=== PATIENT | female | born 1955 | race Two or more races ===

== ENCOUNTER 2025-05-25 15:08 | Emergency (ER) | payer BC, MEDICARE ==
[~2025-05-25] VITALS: Ht 167.6 cm; Wt 66.0 kg
[2025-05-25 15:14] VITALS: TEMP 36.8; O2SAT 97
[2025-05-25 16:34] LABS: BASOPHILS % 1.0 % (0.0-2.0); EOSINOPHILS % 2.5 % (0.0-5.0); HEMATOCRIT. 37.7 % (36.0-48.0); HEMOGLOBIN. 12.4 g/dL (12.0-16.0); LYMPHOCYTES % 24.4 % (20.0-50.0); MEAN PLATELET VOLUME 9.1 fl (7.4-10.4); MONOCYTES % 6.3 % (2.0-8.0); NEUTROPHILS % 65.8 % (40.0-76.0); PLATELET 246 x1000/uL (130-400); RED BLOOD CELL COUNT 3.99 mill/uL (4.2-5.4); RED CELL DISTRIBUTION WIDTH 13.9 % (11.6-14.6)
[2025-05-25 16:43] LABS: INR 1.0
[2025-05-25 16:46] LABS: CREATININE 0.7 mg/dL (0.6-1.0); UREA NITROGEN BLOOD 11 mg/dL (9-23)
[2025-05-25 16:47] LABS: TROPONIN I HIGH SENSITIVITY 5 ng/L (3.0-34)
[2025-05-25 16:48] LABS: ASPARTATE AMINOTRANSFERASE 14 IU/L (<34); BILIRUBIN DIRECT < 0.1 mg/dL (<=3.0); BILIRUBIN TOTAL 0.4 mg/dL (0.1-1.0); PROTEIN TOTAL 6.3 g/dL (6.0-8.3)
[2025-05-25] MEDS ORDERED: IBUP-2028 MT (17:28)
[2025-05-25 17:38] VITALS: BP 173/82; PULSE 65; RESP 14; O2SAT 99
[2025-05-25] MEDS: DEXAMETHASONE 10 MG/ML VIAL IV ONE (17:48)
== END 2025-05-25 17:53 | disposition home or self-care (01) ==
LOC: ER 15:08
DX: M79.605 Pain in left leg (principal); Z79.899 Other long term (current) drug therapy
CPT/HCPCS: 99285; 96374; 93971; 80076; 80048; 83690; 83735; 85025; 85610; 85730; 84484; 36415; 73560; 73600; J1100